=== PATIENT | male | born 1985 | race African-American/Black ===

== ENCOUNTER 2018-05-05 09:21 | Emergency (ER) | payer MEDICAID, OTHER ==
[~2018-05-05] VITALS: Ht 180.3 cm; Wt 88.5 kg
[2018-05-05] MEDS ORDERED: ONDANSETRON ODT 4 MG TAB.RAPDIS ONE (10:13)
[2018-05-05] MEDS ORDERED: IBUPROFEN 800 MG TABLET ONE (10:14)
[2018-05-05] MEDS ORDERED: ONDANSETRON ODT 4 MG TAB.RAPDIS SL ONE (10:15)
[2018-05-05] MEDS ORDERED: IBUPROFEN 800 MG TABLET PO ONE (10:15)
[2018-05-05 10:23] LABS: BASOPHILS % (AUTO) 0.5 % (0.0-2.0); EOSINOPHILS # (AUTO) 0.2 K/uL (0.0-0.7); EOSINOPHILS % (AUTO) 2.1 % (0.0-7.0); HEMATOCRIT 40.9 % (36.7-47.1); LYMPHOCYTES # (AUTO) 0.3 K/uL (20.0-40.0); LYMPHOCYTES % (AUTO) 3.9 % (20.5-51.5); MEAN CORPUSCULAR HGB CONC 34 g/dL (32.5-36.3); MEAN CORPUSCULAR VOLUME 90.3 fL (73.0-96.2); MONOCYTES # (AUTO) 0.9 K/uL (2.0-10.0); MONOCYTES % (AUTO) 10.3 % (0.0-11.0); NEUTROPHILS # (AUTO) 6.9 K/uL (1.8-8.9); NEUTROPHILS % (AUTO) 83.2 % (38.5-71.5); PLATELET COUNT (AUTO) 235 K/uL (152-348); RED BLOOD CELL COUNT(AUTO) 4.53 MIL/uL (4.06-5.63); WHITE BLOOD COUNT (AUTO) 8.3 K/uL (3.6-10.2)
[2018-05-05 10:27] LABS: CREATININE 0.9 mg/dL (0.6-1.3); POTASSIUM 3.5 mmol/L (3.5-5.1)
[2018-05-05 10:33] LABS: BILIRUBIN,DIRECT 0.2 mg/dL (0.0-0.2); BILIRUBIN,TOTAL 0.7 mg/dL (0.2-1.0)
--- NOTE | 2018-05-05 10:50 | NUR ---
DR GAN MADE PATIENT AWARE OF TEST
--- NOTE | 2018-05-05 10:59 | NUR ---
Patient discharged to home in stable conditon. Written and verbal after care instructions given. Patient verbalizes understanding of instructions.
[2018-05-05 11:03] VITALS: BP 128/70
== END 2018-05-05 11:04 | disposition home or self-care (01) ==
LOC: ER 09:21
DX: B34.9 Viral infection, unspecified (principal)
CPT/HCPCS: 36415; 71045; 85025; 87040; 87400; A4663; Q0162

== ENCOUNTER 2018-05-18 20:07 | Emergency (ER) | payer OTHER ==
[~2018-05-18] VITALS: Ht 177.8 cm; Wt 88.5 kg
[2018-05-18] MEDS ORDERED: diphenhydrAMINE 50 MG/1 ML VIAL IV ONE (21:15)
[2018-05-18] MEDS ORDERED: diphenhydrAMINE 50 MG/1 ML VIAL ONE (21:17)
[2018-05-18] MEDS ORDERED: NORMAL SALINE FLUSH 10 ML DISP.SYRIN ONE (21:31)
[2018-05-18] MEDS ORDERED: IOHEXOL 350 100 ML INFUS..BTL ONE (21:31)
[2018-05-18] MEDS ORDERED: SWABABLE VALVE TRANSFER SET EA MC ONE (21:31)
[2018-05-18] MEDS ORDERED: IV NORMAL SALINE 250 ML IV ONE (21:31)
[2018-05-18] MEDS ORDERED: MORPHINE SULFATE 4 MG/1 ML DISP.SYRIN ONE (21:45)
[2018-05-18] MEDS ORDERED: ONDANSETRON 4 MG/2 ML VIAL IV ONE (21:45)
[2018-05-18] MEDS ORDERED: MORPHINE SULFATE 2 MG/1 ML DISP.SYRIN IV ONE (21:45)
[2018-05-18] MEDS ORDERED: ONDANSETRON 4 MG/2 ML VIAL ONE (21:45)
[2018-05-18 21:49] LABS: BASOPHILS % (AUTO) 0.5 % (0.0-2.0); EOSINOPHILS # (AUTO) 0.1 K/uL (0.0-0.7); EOSINOPHILS % (AUTO) 1.5 % (0.0-7.0); HEMATOCRIT 39.5 % (36.7-47.1); LYMPHOCYTES # (AUTO) 2.3 K/uL (20.0-40.0); LYMPHOCYTES % (AUTO) 25.3 % (20.5-51.5); MEAN CORPUSCULAR HEMOGLOBIN 31.7 uug (23.8-33.4); MEAN CORPUSCULAR HGB CONC 35 g/dL (32.5-36.3); MEAN CORPUSCULAR VOLUME 89.6 fL (73.0-96.2); MONOCYTES # (AUTO) 1.1 K/uL (2.0-10.0); MONOCYTES % (AUTO) 12.1 % (0.0-11.0); NEUTROPHILS # (AUTO) 5.5 K/uL (1.8-8.9); NEUTROPHILS % (AUTO) 60.6 % (38.5-71.5); PLATELET COUNT (AUTO) 387 K/uL (152-348); RED BLOOD CELL COUNT(AUTO) 4.41 MIL/uL (4.06-5.63)
[2018-05-18 21:55] LABS: CARBON DIOXIDE 24 mmol/L (21-32); CHLORIDE 103 mmol/L (98-107); CREATININE 0.8 mg/dL (0.6-1.3); GLUCOSE 96 mg/dL (74-106); POTASSIUM 3.7 mmol/L (3.5-5.1); UREA NITROGEN, BLOOD 14 mg/dL (7-18)
[2018-05-19] MEDS ORDERED: IV NORMAL SALINE 1000 ML BAG IV ONE ×2 (00:15)
[2018-05-19 01:03] VITALS: BP 138/72
== END 2018-05-19 01:04 | disposition home or self-care (01) ==
LOC: ER 20:07
DX: S10.93XA Contusion of unspecified part of neck, initial encounter (principal); S30.0XXA Contusion of lower back and pelvis, initial encounter; S69.92XA Unspecified injury of left wrist, hand and finger(s), initial encounter; S69.91XA Unspecified injury of right wrist, hand and finger(s), initial encounter; S09.90XA Unspecified injury of head, initial encounter; Y04.2XXA Assault by strike against or bumped into by another person, initial encounter; Y93.89 Activity, other specified; Y92.89 Other specified places as the place of occurrence of the external cause; Y99.8 Other external cause status
CPT/HCPCS: 36415; 70450; 73110; 73140; 85025; 85730; A4663; J1200; J2270; J2405; J3490; J7030; J7050; Q9967

== ENCOUNTER 2018-07-29 13:24 | Emergency (ER) | payer OTHER ==
[~2018-07-29] VITALS: Ht 177.8 cm; Wt 90.7 kg
[2018-07-29] MEDS ORDERED: IBUP-1957 PO (13:43)
--- NOTE | 2018-07-29 13:45 | NUR ---
JARRELL PALMA AT BEDSIDE FOR MSE.
[2018-07-29] MEDS ORDERED: HYDROCODONE/APAP 5-325MG TABLET ONE (14:11)
--- NOTE | 2018-07-29 14:11 | NUR ---
PT TAKEN TO RADIOLOGY FOR CT SCAN.
[2018-07-29] MEDS ORDERED: HYDROCODONE/APAP 5-325MG TABLET PO ONE (14:15)
--- NOTE | 2018-07-29 14:42 | NUR ---
PT BACK IN ER FROM RADIOLOGY.
--- NOTE | 2018-07-29 14:44 | NUR ---
JARRELL PALMA AT BEDSIDE FOR PT UPDATE.
--- NOTE | 2018-07-29 15:27 | NUR ---
Patient discharged to home in stable conditon. Written and verbal after care instructions given. Patient verbalizes understanding of instructions. ALL BELONGINGS W/ PT. PT SELF-AMBULATED W/O DIFFICULTY.
[2018-07-29 15:29] VITALS: BP 151/82
== END 2018-07-29 15:30 | disposition home or self-care (01) ==
LOC: ER 13:24
DX: M54.12 Radiculopathy, cervical region (principal); R20.2 Paresthesia of skin; Z91.041 Radiographic dye allergy status; Z79.1 Long term (current) use of non-steroidal anti-inflammatories (NSAID)
CPT/HCPCS: 72125; 72131; A4663

== ENCOUNTER 2018-08-10 18:28 | Emergency (ER) | payer OTHER ==
[~2018-08-10] VITALS: Ht 177.8 cm; Wt 90.7 kg
[~2018-08-10 18:28] MED LIST: IBUP-1957 PO
--- NOTE | 2018-08-10 18:55 | NUR ---
PT IS IN ROOM #1A, WAITING FOR ER MD EVALUATION.
[2018-08-10] MEDS ORDERED: IBUPROFEN 400 MG TABLET PO ONE (19:00)
--- NOTE | 2018-08-10 19:05 | NUR ---
PT WAS EVALUATED BY DR ALDANA. PT WAS D/C'd TO HOME. D/C INSTRUCTIONS GIVEN TO THE PT.
[2018-08-10 19:06] VITALS: BP 129/68
[2018-08-10] MEDS ORDERED: IBUPROFEN 400 MG TABLET ONE (19:10)
== END 2018-08-10 19:09 | disposition home or self-care (01) ==
LOC: ER 18:30
DX: S00.03XA Contusion of scalp, initial encounter (principal); Z91.041 Radiographic dye allergy status; Z79.1 Long term (current) use of non-steroidal anti-inflammatories (NSAID); W20.8XXA Other cause of strike by thrown, projected or falling object, initial encounter; Y93.89 Activity, other specified; Y92.89 Other specified places as the place of occurrence of the external cause; Y99.8 Other external cause status
CPT/HCPCS: A4663

== ENCOUNTER 2018-11-01 23:48 | Emergency (ER) | payer OTHER ==
[~2018-11-01] VITALS: Ht 177.8 cm; Wt 92.5 kg
[2018-11-02] MEDS ORDERED: IBUPROFEN 800 MG TABLET PO ONE (00:15)
[2018-11-02] MEDS ORDERED: IBUPROFEN 800 MG TABLET ONE (00:16)
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
--- NOTE | 2018-11-02 00:43 | NUR ---
Patient discharged to home in stable conditon. Written and verbal after care instructions given. Patient verbalizes understanding of instructions. Patient ambulated with stable gait.
[2018-11-02 00:57] VITALS: BP 132/72
== END 2018-11-02 00:43 | disposition home or self-care (01) ==
LOC: ER 23:49
DX: S60.221A Contusion of right hand, initial encounter (principal); Z91.041 Radiographic dye allergy status; Z79.1 Long term (current) use of non-steroidal anti-inflammatories (NSAID); W22.01XA Walked into wall, initial encounter; Y93.89 Activity, other specified; Y92.89 Other specified places as the place of occurrence of the external cause; Y99.8 Other external cause status
CPT/HCPCS: 73130; A4663

== ENCOUNTER 2018-11-24 10:33 | Inpatient (IN) | payer OTHER ==
[~2018-11-24] VITALS: Ht 177.8 cm; Wt 92.5 kg
[2018-11-24 10:55] LABS: *BILIRUBIN,URIN NEGATIVE (NEGATIVE); *BLOOD, URINE NEGATIVE (NEGATIVE); *CLARITY,URINE CLEAR (CLEAR); *COLOR,URINE YELLOW (YELLOW); *KETONES,URINE NEGATIVE (NEGATIVE); *UROBILINOGEN,URINE 0.2 E.U./dl (NORMAL); LEUKOCYTE ESTERASE ,URINE TRACE (NEGATIVE); NITRITE, URINE NEGATIVE (NEGATIVE); PH,URINE 6.5 (5.0-8.0); UGLUCOSE NEGATIVE (NEGATIVE)
[2018-11-24 11:03] LABS: MUCUS,URINE FEW /LPF (0-FEW); SQUAMOUS EPITHELIAL CELL,UR NONE SEEN /HPF (NONE SEEN)
[2018-11-24 11:04] LABS: BACTERIA,URINE FEW /HPF (NONE SEEN); RBC,URINE 0-3 /HPF (0-3); WBC,URINE 0-3 /HPF (0-3)
[2018-11-24] MEDS ORDERED: HYDROCODONE/APAP 10-325 MG TABLET PO ONE (11:15)
[2018-11-24] MEDS ORDERED: HYDROCODONE/APAP 10-325 MG TABLET ONE (11:20)
[2018-11-24] MEDS ORDERED: HYDROMORPHONE 1 MG/1 ML DISP.SYRIN IV ONE (11:45)
[2018-11-24] MEDS ORDERED: IV NORMAL SALINE 1000 ML BAG IV ONE (11:45)
[2018-11-24] MEDS ORDERED: ONDANSETRON 4 MG/2 ML VIAL IV ONE (11:45)
[2018-11-24] MEDS ORDERED: HYDROMORPHONE 1 MG/1 ML DISP.SYRIN ONE (11:54)
[2018-11-24] MEDS ORDERED: ONDANSETRON 4 MG/2 ML VIAL ONE (11:54)
[2018-11-24 11:56] LABS: BASOPHILS % (AUTO) 0.3 % (0.0-2.0); EOSINOPHILS # (AUTO) 0.1 K/uL (0.0-0.7); EOSINOPHILS % (AUTO) 1.8 % (0.0-7.0); HEMATOCRIT 43.8 % (36.7-47.1); HEMOGLOBIN 14.7 g/dL (12.5-16.3); LYMPHOCYTES % (AUTO) 14.2 % (20.5-51.5); MEAN CORPUSCULAR HEMOGLOBIN 30.5 uug (23.8-33.4); MEAN CORPUSCULAR HGB CONC 34 g/dL (32.5-36.3); MEAN CORPUSCULAR VOLUME 90.5 fL (73.0-96.2); MONOCYTES # (AUTO) 0.7 K/uL (2.0-10.0); MONOCYTES % (AUTO) 9.6 % (0.0-11.0); NEUTROPHILS # (AUTO) 5.3 K/uL (1.8-8.9); NEUTROPHILS % (AUTO) 74.1 % (38.5-71.5); PLATELET COUNT (AUTO) 279 K/uL (152-348); RED BLOOD CELL COUNT(AUTO) 4.84 MIL/uL (4.06-5.63); WHITE BLOOD COUNT (AUTO) 7.1 K/uL (3.6-10.2)
[2018-11-24 12:07] LABS: BILIRUBIN,DIRECT 0.1 mg/dL (0.0-0.2); BILIRUBIN,TOTAL 0.5 mg/dL (0.2-1.0); CREATININE 0.9 mg/dL (0.6-1.3); TOTAL PROTEIN, SERUM 7.7 g/dL (6.4-8.2)
[2018-11-24 13:30] VITALS: BP 145/81
[2018-11-24] MEDS: IV D5 1/2 NS 1000 ML 1,000 ML IV PRN ×2 (14:17→23:11)
[2018-11-24] MEDS ORDERED: ACETAMINOPHEN 325 MG TABLET PO PRN (15:45)
[2018-11-24] MEDS ORDERED: ONDANSETRON 4 MG/2 ML VIAL IV PRN (15:45)
[2018-11-24] MEDS ORDERED: Z GUARD REMEDY PASTE 57 GM TUBE TOP PRN (15:45)
[2018-11-24] MEDS ORDERED: ZOLPIDEM 5 MG TABLET PO PRN (15:45)
[2018-11-24] MEDS: HYDROMORPHONE 1 MG/1 ML DISP.SYRIN IV PRN ×2 (16:23→20:41)
[2018-11-24 20:09] VITALS: BP 123/66
[2018-11-25] MEDS: HYDROMORPHONE 1 MG/1 ML DISP.SYRIN IV PRN ×5 (02:43→19:47)
[2018-11-25 06:23] LABS: BASOPHILS % (AUTO) 0.5 % (0.0-2.0); EOSINOPHILS # (AUTO) 0.2 K/uL (0.0-0.7); EOSINOPHILS % (AUTO) 3.3 % (0.0-7.0); HEMATOCRIT 39.6 % (36.7-47.1); LYMPHOCYTES # (AUTO) 1.3 K/uL (20.0-40.0); LYMPHOCYTES % (AUTO) 19.2 % (20.5-51.5); MEAN CORPUSCULAR HEMOGLOBIN 31.2 uug (23.8-33.4); MEAN CORPUSCULAR HGB CONC 35 g/dL (32.5-36.3); MONOCYTES # (AUTO) 0.7 K/uL (2.0-10.0); MONOCYTES % (AUTO) 9.5 % (0.0-11.0); NEUTROPHILS # (AUTO) 4.7 K/uL (1.8-8.9); NEUTROPHILS % (AUTO) 67.5 % (38.5-71.5); PLATELET COUNT (AUTO) 271 K/uL (152-348)
[2018-11-25 06:33] LABS: POTASSIUM 3.7 mmol/L (3.5-5.1)
[2018-11-25 06:34] LABS: BILIRUBIN,TOTAL 0.6 mg/dL (0.2-1.0); MAGNESIUM 1.8 mg/dL (1.8-2.4); PHOSPHOROUS 4.1 mg/dL (2.5-4.9); TOTAL PROTEIN, SERUM 6.8 g/dL (6.4-8.2)
[2018-11-25 06:43] LABS: THYROID STIMULATING HORMONE 5.287 mIU/mL (0.358-3.740)
[2018-11-25 06:46] VITALS: BP 113/72
[2018-11-25] MEDS ORDERED: BARIUM SULFATE 340 GM ONE (08:41)
[2018-11-25] MEDS ORDERED: DIATR MEGLU/DIATRIZOATE SODIUM 30 ML SOLUTION ONE (08:41)
[2018-11-25] MEDS: IV D5 1/2 NS 1000 ML 1,000 ML IV PRN (08:43)
[2018-11-25 11:03] VITALS: BP 124/66
[2018-11-25] MEDS ORDERED: MAGNESIUM OXIDE 400 MG TABLET PO ONE (11:30)
[2018-11-25] MEDS ORDERED: FUROSEMIDE 40 MG/4 ML VIAL IV ONE (11:30)
[2018-11-25] MEDS ORDERED: POTASSIUM CHLORIDE 20 MEQ TAB.PRT.SR PO ONE (11:30)
[2018-11-25] MEDS: SUCRALFATE 1 G TABLET PO SCH ×3 (12:22→20:48)
[2018-11-25 15:04] VITALS: BP 135/70
[2018-11-25 19:30] VITALS: BP 134/75
[2018-11-26] MEDS: HYDROMORPHONE 1 MG/1 ML DISP.SYRIN IV PRN ×4 (00:02→13:47)
[2018-11-26 04:00] VITALS: BP_SYST 132; BP_SYST 135; BP_DIAS 73; BP_DIAS 75
[2018-11-26] MEDS ORDERED: PANTOPRAZOLE SODIUM 40 MG TABLET.DR PO SCH (07:00)
[2018-11-26] MEDS ORDERED: NAPR-1164 PO (10:33)
[2018-11-26] MEDS ORDERED: CEPH-570 PO (10:33)
== END 2018-11-26 15:02 | disposition home or self-care (01) | DRG 247 ==
LOC: ER 10:33 → MEDSURG3 12:46
PROVIDERS: ADMIT Nurse Practitioner Acute Care; ATTEND Nurse Practitioner Acute Care
DX: K56.600 Partial intestinal obstruction, unspecified as to cause (principal); N20.0 Calculus of kidney; Z86.711 Personal history of pulmonary embolism; Z87.01 Personal history of pneumonia (recurrent); N39.0 Urinary tract infection, site not specified; B96.89 Other specified bacterial agents as the cause of diseases classified elsewhere; Z91.041 Radiographic dye allergy status
CPT/HCPCS: 36415; 71045; 74250; 83550; 83690; 83735; 84100; 84443; 85025; A4663; G0378; J1170; J2405; J3490; J7030; Q9963; Q9967

== ENCOUNTER 2019-05-18 18:44 | Emergency (ER) | payer OTHER ==
[~2019-05-18] VITALS: Ht 177.8 cm; Wt 86.2 kg
[~2019-05-18 18:44] MED LIST changes: +CEPH-570 PO; -IBUP-1957 PO; +NAPR-1164 PO
[2019-05-18] MEDS ORDERED: LORAZEPAM 0.5 MG TABLET PO ONE (20:45)
[2019-05-18] MEDS ORDERED: LORAZEPAM 1 MG TABLET ONE (20:46)
--- NOTE | 2019-05-18 21:06 | NUR ---
Patient discharged to home in stable conditon WITH GIRLFRIEND TAKING PATIENT HOME. Written and verbal after care instructions given. Patient verbalizes understanding of instructions. WALKED OUT OF ER WITH NO DISTRESS NOTED.
[2019-05-18 21:07] VITALS: BP 120/74
== END 2019-05-18 21:07 | disposition home or self-care (01) ==
LOC: ER 18:46
DX: F41.9 Anxiety disorder, unspecified (principal); Z79.899 Other long term (current) drug therapy; Z60.2 Problems related to living alone
CPT/HCPCS: 93005; A4663

== ENCOUNTER 2019-09-23 17:28 | Emergency (ER) | payer OTHER ==
[~2019-09-23] VITALS: Ht 177.8 cm; Wt 86.2 kg
--- NOTE | 2019-09-23 17:45 | NUR ---
Dr. Hood at bedside for MSE
[2019-09-23] MEDS ORDERED: IBUPROFEN 800 MG TABLET ONE (17:58)
[2019-09-23] MEDS ORDERED: IBUPROFEN 800 MG TABLET PO ONE (18:00)
--- NOTE | 2019-09-23 18:53 | NUR ---
Patient discharged to home in stable condition. Written and verbal after care instructions given. Patient verbalizes understanding of instructions. Stressed follow up or return to ER for worsening s/s. Patient ambulating with steady gait. NAD noted
[2019-09-23 18:55] VITALS: BP 135/80
== END 2019-09-23 18:53 | disposition home or self-care (01) ==
LOC: ER 17:37
DX: M54.12 Radiculopathy, cervical region (principal); S39.92XA Unspecified injury of lower back, initial encounter; V43.62XA Car passenger injured in collision with other type car in traffic accident, initial encounter; Y92.410 Unspecified street and highway as the place of occurrence of the external cause; Z86.711 Personal history of pulmonary embolism; Z87.01 Personal history of pneumonia (recurrent)
CPT/HCPCS: A4663

== ENCOUNTER 2020-02-04 14:25 | Emergency (ER) | payer OTHER ==
[~2020-02-04] VITALS: Ht 177.8 cm; Wt 88.5 kg
[2020-02-04] MEDS ORDERED: HYDROMORPHONE 1 MG/1 ML DISP.SYRIN IV ONE (15:00)
[2020-02-04] MEDS ORDERED: KETOROLAC TROMETHAMINE 15 MG INJ IVP ONE (15:00)
[2020-02-04] MEDS ORDERED: IV NORMAL SALINE 1000 ML BAG IV ONE (15:00)
[2020-02-04] MEDS ORDERED: ONDANSETRON 4 MG/2 ML VIAL IV ONE (15:00)
[2020-02-04] MEDS ORDERED: KETOROLAC TROMETHAMINE 30 MG INJ ONE (15:04)
[2020-02-04 15:06] LABS: BASOPHILS % (AUTO) 0.5 % (0.0-2.0); EOSINOPHILS # (AUTO) 0.2 K/uL (0.0-0.7); EOSINOPHILS % (AUTO) 2.2 % (0.0-7.0); HEMATOCRIT 43.6 % (36.7-47.1); HEMOGLOBIN 15.2 g/dL (12.5-16.3); LYMPHOCYTES # (AUTO) 1.5 K/uL (20.0-40.0); LYMPHOCYTES % (AUTO) 14.4 % (20.5-51.5); MEAN CORPUSCULAR HEMOGLOBIN 32.5 uug (23.8-33.4); MEAN CORPUSCULAR HGB CONC 35 g/dL (32.5-36.3); MEAN CORPUSCULAR VOLUME 92.9 fL (73.0-96.2); MONOCYTES # (AUTO) 1.2 K/uL (2.0-10.0); NEUTROPHILS # (AUTO) 7.2 K/uL (1.8-8.9); NEUTROPHILS % (AUTO) 70.9 % (38.5-71.5); PLATELET COUNT (AUTO) 235 K/uL (152-348); WHITE BLOOD COUNT (AUTO) 10.2 K/uL (3.6-10.2)
[2020-02-04] MEDS ORDERED: HYDROMORPHONE 1 MG/1 ML DISP.SYRIN ONE (15:06)
[2020-02-04] MEDS ORDERED: ONDANSETRON 4 MG/2 ML VIAL ONE (15:06)
[2020-02-04 15:10] LABS: *BILIRUBIN,URIN NEGATIVE (NEGATIVE); *BLOOD, URINE 3+ (NEGATIVE); *CLARITY,URINE SLIGHTLY CLOUDY (CLEAR); *COLOR,URINE YELLOW (YELLOW); *KETONES,URINE NEGATIVE (NEGATIVE); *UROBILINOGEN,URINE 0.2 E.U./dl (NORMAL); LEUKOCYTE ESTERASE ,URINE NEGATIVE (NEGATIVE); NITRITE, URINE NEGATIVE (NEGATIVE); UGLUCOSE NEGATIVE (NEGATIVE)
[2020-02-04 15:17] LABS: CREATININE 1.4 mg/dL (0.6-1.3)
[2020-02-04 15:22] LABS: BILIRUBIN,DIRECT 0.1 mg/dL (0.0-0.2); BILIRUBIN,TOTAL 0.6 mg/dL (0.2-1.0); TOTAL PROTEIN, SERUM 7.4 g/dL (6.4-8.2)
--- NOTE | 2020-02-04 16:45 | NUR ---
patient was seen by Dr decker for c/o flak pain. Tests completed. medication given. patient states pain has diminished. Patients mother to drive him home, patient states he understands precautions of pain meds. DC, Rx and follow up isntructions given and explained to patient who states he understands all instructions.
--- NOTE | 2020-02-04 16:47 | NUR ---
IV removed. Catheter intact and site benign. Pressure and 4x4 gauze applied to site. No bleeding noted.
[2020-02-04 16:51] VITALS: BP 122/69
[2020-02-04 18:24] LABS: BACTERIA,URINE RARE /HPF (NONE SEEN); SQUAMOUS EPITHELIAL CELL,UR FEW /HPF (NONE SEEN)
== END 2020-02-04 16:51 | disposition home or self-care (01) ==
LOC: ER 14:25
DX: N13.2 Hydronephrosis with renal and ureteral calculous obstruction (principal); R31.9 Hematuria, unspecified; Z86.711 Personal history of pulmonary embolism; Z87.01 Personal history of pneumonia (recurrent); Z88.8 Allergy status to other drugs, medicaments and biological substances; Z91.041 Radiographic dye allergy status
CPT/HCPCS: 36415; 74176; 80048; 80076; 81001; 83690; 85025; 96361; 96374; 96375; 99284; J1170; J1885; J2405; A4663

== ENCOUNTER 2020-11-10 22:57 | Emergency (ER) | payer OTHER ==
[~2020-11-10] VITALS: Ht 177.8 cm; Wt 97.5 kg
[2020-11-11] MEDS ORDERED: OXYCODONE/APAP 5-325 MG TABLET PO ONE
[2020-11-11] MEDS ORDERED: OXYCODONE/APAP 5-325 MG TABLET ONE (00:16)
[2020-11-11 00:17] LABS: *BILIRUBIN,URIN NEGATIVE (NEGATIVE); *CLARITY,URINE CLEAR (CLEAR); *COLOR,URINE YELLOW (YELLOW); *KETONES,URINE NEGATIVE (NEGATIVE); *UROBILINOGEN,URINE 0.2 E.U./dl (NORMAL); LEUKOCYTE ESTERASE ,URINE NEGATIVE (NEGATIVE); NITRITE, URINE NEGATIVE (NEGATIVE); UGLUCOSE NEGATIVE (NEGATIVE)
[2020-11-11 00:19] LABS: *BLOOD, URINE TRACE (NEGATIVE)
[2020-11-11 00:25] LABS: BACTERIA,URINE NONE SEEN /HPF (NONE SEEN); RBC,URINE 0-3 /HPF (0-3); SQUAMOUS EPITHELIAL CELL,UR FEW /HPF (NONE SEEN); WBC,URINE 0-3 /HPF (0-3)
--- NOTE | 2020-11-11 00:33 | NUR ---
Pt refused bloodwork.
[2020-11-11] MEDS ORDERED: OXYC-128 PO (01:13)
--- NOTE | 2020-11-11 01:23 | NUR ---
Patient discharged to home in stable condition. Written and verbal after care instructions given. Patient verbalizes understanding of instructions. Stressed follow up or return to ER for worsening s/s. Patient A&O x4, ambulating with steady gait. NAD noted
[2020-11-11 01:26] VITALS: BP 149/83
== END 2020-11-11 01:26 | disposition home or self-care (01) ==
LOC: ER 22:58
DX: M54.9 Dorsalgia, unspecified (principal); N20.0 Calculus of kidney; I10 Essential (primary) hypertension; Z87.442 Personal history of urinary calculi; Z88.8 Allergy status to other drugs, medicaments and biological substances; Z91.041 Radiographic dye allergy status; F17.210 Nicotine dependence, cigarettes, uncomplicated
CPT/HCPCS: A4663

== ENCOUNTER 2021-02-20 18:12 | Emergency (ER) | payer OTHER ==
[~2021-02-20] VITALS: Ht 177.8 cm; Wt 98.4 kg
[~2021-02-20 18:12] MED LIST changes: +OXYC-128 PO
--- NOTE | 2021-02-20 20:11 | NUR ---
Pt bib triage nurse from waiting room to room ED4B. Pt placed on gurney in pos of comfort awaiting EDMD eval.
[2021-02-20 20:31] LABS: *BILIRUBIN,URIN NEGATIVE (NEGATIVE); *BLOOD, URINE NEGATIVE (NEGATIVE); *CLARITY,URINE CLEAR (CLEAR); *COLOR,URINE YELLOW (YELLOW); *KETONES,URINE NEGATIVE (NEGATIVE); *UROBILINOGEN,URINE 0.2 E.U./dl (NORMAL); LEUKOCYTE ESTERASE ,URINE NEGATIVE (NEGATIVE); NITRITE, URINE NEGATIVE (NEGATIVE); UGLUCOSE NEGATIVE (NEGATIVE)
[2021-02-20] MEDS ORDERED: IBUP-1957 PO (21:00)
[2021-02-20] MEDS ORDERED: IBUPROFEN 800 MG TABLET PO ONE (21:00)
--- NOTE | 2021-02-20 21:28 | NUR ---
Pt given DC instructions and med info and pt confirmed understanding of aftercare. Pt DCed and ambulated out of dept without difficulty and with steady gait. No s/sx of distress present.
[2021-02-20 21:32] VITALS: BP 143/88
== END 2021-02-20 20:45 | disposition home or self-care (01) ==
LOC: ER 18:12
DX: B30.9 Viral conjunctivitis, unspecified (principal); R39.15 Urgency of urination; F17.210 Nicotine dependence, cigarettes, uncomplicated; Z88.8 Allergy status to other drugs, medicaments and biological substances; Z91.041 Radiographic dye allergy status
CPT/HCPCS: A4663

== ENCOUNTER 2021-08-31 20:13 | Emergency (ER) | payer OTHER ==
[~2021-08-31] VITALS: Ht 177.8 cm; Wt 95.3 kg
[~2021-08-31 20:13] MED LIST changes: +IBUP-1957 PO
[2021-08-31] MEDS ORDERED: MORPHINE SULFATE 4 MG/1 ML DISP.SYRIN IV ONE (21:00)
[2021-08-31] MEDS ORDERED: MORPHINE SULFATE 4 MG/1 ML DISP.SYRIN ONE (21:02)
[2021-08-31 21:26] LABS: HEMATOCRIT 42.5 % (36.7-47.1); MEAN CORPUSCULAR HEMOGLOBIN 31.8 uug (23.8-33.4); MEAN CORPUSCULAR VOLUME 91.7 fL (73.0-96.2); PLATELET COUNT (AUTO) 302 K/uL (152-348)
[2021-08-31 21:40] LABS: POTASSIUM 4.2 mmol/L (3.5-5.1)
[2021-08-31 21:54] LABS: BILIRUBIN,TOTAL 0.4 mg/dL (0.2-1.0); TOTAL PROTEIN, SERUM 7.9 g/dL (6.4-8.2)
--- NOTE | 2021-08-31 22:05 | NUR ---
Patient taken to CT
[2021-08-31] MEDS ORDERED: IOHEXOL 300MG/ML 100 ML INFUS..BTL ONE (22:07)
[2021-08-31] MEDS ORDERED: SWABABLE VALVE TRANSFER SET EA MC ONE (22:07)
[2021-08-31] MEDS ORDERED: IV NORMAL SALINE 250 ML IV ONE (22:07)
--- NOTE | 2021-08-31 22:15 | NUR ---
Patient back from CT
--- NOTE | 2021-08-31 22:23 | NUR ---
Patient in bed, watching tv. NAD noted
[2021-08-31] MEDS ORDERED: CYCLOBENZAPRINE HCL 10 MG TABLET ONE (22:29)
[2021-08-31] MEDS ORDERED: CYCLOBENZAPRINE HCL 10 MG TABLET PO ONE (22:30)
[2021-08-31] MEDS ORDERED: AZIT500T PO (23:36)
[2021-08-31] MEDS ORDERED: ACET325T53 PO (23:36)
[2021-08-31] MEDS ORDERED: HYDR-3980 PO (23:37)
[2021-08-31] MEDS ORDERED: CYCL5TAB PO (23:37)
--- NOTE | 2021-09-01 00:14 | NUR ---
Patient discharged to home in stable condition. Written and verbal after care instructions given. Patient verbalizes understanding of instructions. Stressed follow up or return to ER for worsening s/s. Patient is a/ox4, NAD noted. Patient is able to walk with steady gait. Patient is accompanied by S.O.
[2021-09-01] MEDS ORDERED: ALBU6.7H9 INH (00:26)
[2021-09-01 00:55] VITALS: BP 134/78
== END 2021-09-01 00:14 | disposition home or self-care (01) ==
LOC: ER 20:15
DX: M54.12 Radiculopathy, cervical region (principal); R07.9 Chest pain, unspecified; M54.2 Cervicalgia; R91.8 Other nonspecific abnormal finding of lung field; F17.200 Nicotine dependence, unspecified, uncomplicated; Z91.041 Radiographic dye allergy status; I10 Essential (primary) hypertension; Z87.442 Personal history of urinary calculi
CPT/HCPCS: 36415; 71260; 72125; 80053; 83880; 84484 ×2; 85025; 93005; 96374; 99285; J2270; Q9967; A4663

== ENCOUNTER 2022-03-06 16:16 | Emergency (ER) | payer SELFPAY ==
[~2022-03-06] VITALS: Ht 177.8 cm; Wt 102.1 kg
[~2022-03-06 16:16] MED LIST changes: +ACET325T53 PO; +ALBU6.7H9 INH; +AZIT500T PO; +CYCL5TAB PO; +HYDR-3980 PO
--- NOTE | 2022-03-06 22:00 | NUR ---
PATIENT WAS CALLED TO HAVE VITAL RE CHECK BUT NOT PRESENT IN THE WAITING ROOM OR OUTSIDE OF ER.
--- NOTE | 2022-03-06 23:00 | NUR ---
PATIENT WAS CALLED TO BE TRIAGED BUT WAS NOT PRESENT IN THE WAITING ROOM. PATIENT WAS TRIAGED BUT NOT SEEN BY ERMD.
== END 2022-03-06 23:00 | disposition left against medical advice (07) ==
LOC: ER 16:16
DX: Z53.21 Procedure and treatment not carried out due to patient leaving prior to being seen by health care provider (principal)
CPT/HCPCS: A4663